=== PATIENT | male | born 1965 | race Two or more races ===

== ENCOUNTER 2019-11-10 09:55 | Emergency (ER) | payer MEDICAID ==
[~2019-11-10] VITALS: Ht 182.9 cm; Wt 73.0 kg
[2019-11-10 11:04] LABS: HEMATOCRIT. 34.7 % (42.0-52.0); HEMOGLOBIN. 12.1 g/dL (14.0-18.0); MEAN CORPUSCULAR HEMOGLOBIN 33.8 pg (28.0-32.0); MEAN CORPUSCULAR VOLUME 96.5 fL (80.0-94.0); MEAN PLATELET VOLUME 7.2 fl (7.4-10.4); PLATELET 257 x1000/uL (130-400); RED CELL DISTRIBUTION WIDTH 13.2 % (11.6-14.6)
[2019-11-10 11:06] LABS: CLARITY URINE CLEAR (CLEAR); COLOR URINE YELLOW (YELLOW); KETONES URINE NEGATIVE (NEGATIVE); LEUKOCYTE ESTERASE URINE 1+ (NEGATIVE); NITRITE URINE POSITIVE (NEGATIVE); OCCULT BLOOD URINE NEGATIVE (NEGATIVE); PH URINE >=9.0 (4.5-8.0); PROTEIN URINE NEGATIVE (NEGATIVE); SPECIFIC GRAVITY URINE 1.004 (1.005-1.030)
[2019-11-10 11:12] LABS: CHLORIDE 99 mEq/L (98-107)
[2019-11-10 11:30] LABS: PLATELET ESTIMATE NORMAL
[2019-11-10] MEDS ORDERED: NITROFURANTOIN 100MG M/M CAPSULE PO ONE (12:15)
[2019-11-10 12:20] VITALS: BP 130/86
== END 2019-11-10 12:36 | disposition home or self-care (01) ==
LOC: ER 09:55
DX: N30.00 Acute cystitis without hematuria (principal); I10 Essential (primary) hypertension; F17.200 Nicotine dependence, unspecified, uncomplicated
CPT/HCPCS: 36415; 71045; 80053; 81003; 85025; 99284

== ENCOUNTER 2019-12-18 12:47 | Inpatient (IN) | payer MEDICAID, OTHER ==
[~2019-12-18] VITALS: Ht 198.1 cm; Wt 86.2 kg
[2019-12-18] MEDS ORDERED: ACETAMINOPHEN 325MG TABLET PO STA (13:17)
[2019-12-18] MEDS ORDERED: PIPERACILLIN/TAZ 3.375G PREMIX 50 ML IV ONE (13:30)
[2019-12-18] MEDS ORDERED: SODIUM CHLORIDE 0.9% 1000ML BAG (SEPSIS BOLUS) IV ONE (13:30)
[2019-12-18] MEDS ORDERED: VANCOMYCIN 1 G PREMIX 200 ML IV ONE (13:30)
[2019-12-18 14:15] LABS: BASOPHILS % 0.4 % (0.0-2.0); HEMOGLOBIN. 14.2 g/dL (14.0-18.0); LYMPHOCYTES % 11.3 % (20.0-50.0); MEAN CORPUSCULAR HEMOGLOBIN 32.2 pg (28.0-32.0); MEAN CORPUSCULAR VOLUME 95.4 fL (80.0-94.0); MEAN PLATELET VOLUME 7.2 fl (7.4-10.4); MONOCYTES % 7.1 % (2.0-8.0); NEUTROPHILS % 81.2 % (40.0-76.0); PLATELET 307 x1000/uL (130-400); RED CELL DISTRIBUTION WIDTH 14.2 % (11.6-14.6)
[2019-12-18 14:18] LABS: CHLORIDE 100 mEq/L (98-107)
[2019-12-18 14:21] LABS: INR 1.1; PROTHROMBIN TIME 11.7 sec (9.6-11.0)
[2019-12-18 14:49] LABS: CLARITY URINE CLOUDY (CLEAR); COLOR URINE YELLOW (YELLOW); KETONES URINE NEGATIVE (NEGATIVE); LEUKOCYTE ESTERASE URINE 1+ (NEGATIVE); NITRITE URINE POSITIVE (NEGATIVE); OCCULT BLOOD URINE NEGATIVE (NEGATIVE); PROTEIN URINE 1+ (NEGATIVE); SPECIFIC GRAVITY URINE 1.013 (1.005-1.030)
[2019-12-18] MEDS ORDERED: BENZONATATE 100MG CAPSULE PO PRN (17:15)
[2019-12-18] MEDS ORDERED: ALBUTEROL 6.7GM HFA INHALER ORI PRN (17:15)
[2019-12-18] MEDS ORDERED: FOLIC ACID 1 MG, THIAMINE HCL 100 MG, MVI, ADULT NO.1 10 ML in DEXTROSE 5% WATER 1,000 ML IV ONE ×4 (18:00)
[2019-12-18] MEDS ORDERED: CEFTRIAXONE 1 G PREMIX 50 ML IV SCH (18:00)
[2019-12-18] MEDS: ENOXAPARIN 40MG/0.4ML SYR SUBCUT SCH (18:27)
[2019-12-18] MEDS: AZITHROMYCIN 500 MG TABLET PO SCH (18:27)
[2019-12-18] MEDS: AMLODIPINE 5MG TABLET PO SCH (18:58)
[2019-12-18 22:00] VITALS: BP 154/75
[2019-12-19] VITALS: BP 158/82
[2019-12-19 04:00] VITALS: BP 127/75
[2019-12-19 08:00] VITALS: BP 133/76
[2019-12-19] MEDS: AMLODIPINE 5MG TABLET PO SCH ×2 (08:34→20:43)
[2019-12-19] MEDS: AZITHROMYCIN 500 MG TABLET PO SCH (08:34)
[2019-12-19] MEDS: ACETAMINOPHEN 325MG TABLET PO PRN ×2 (08:35→18:36)
[2019-12-19 10:03] LABS: *AMPHETAMINES SCREEN URINE NEGATIVE (NEGATIVE); *BARBITURATES SCREEN URINE NEGATIVE (NEGATIVE); *BENZODIAZEPINES SCREEN URINE NEGATIVE (NEGATIVE); *COCAINE SCREEN URINE NEGATIVE (NEGATIVE)
[2019-12-19 10:04] LABS: CANNABINOID URINE SCREEN NEGATIVE (NEGATIVE); METHADONE URINE SCREEN NEGATIVE (NEGATIVE); OPIATES URINE SCREEN NEGATIVE (NEGATIVE); PHENCYCLIDINE URINE SCREEN NEGATIVE (NEGATIVE)
[2019-12-19 11:15] LABS: BASOPHILS % 0.3 % (0.0-2.0); EOSINOPHILS % 0.2 % (0.0-5.0); HEMATOCRIT. 36.3 % (42.0-52.0); HEMOGLOBIN. 12.5 g/dL (14.0-18.0); LYMPHOCYTES % 12.7 % (20.0-50.0); MEAN CORPUSCULAR HEMOGLOBIN 32.6 pg (28.0-32.0); MEAN CORPUSCULAR VOLUME 94.8 fL (80.0-94.0); MEAN PLATELET VOLUME 7.2 fl (7.4-10.4); MONOCYTES % 8.5 % (2.0-8.0); NEUTROPHILS % 78.3 % (40.0-76.0); PLATELET 231 x1000/uL (130-400); RED BLOOD CELL COUNT 3.83 mill/uL (4.7-6.1); RED CELL DISTRIBUTION WIDTH 14.1 % (11.6-14.6)
[2019-12-19 11:18] LABS: CHLORIDE 101 mEq/L (98-107)
[2019-12-19 12:00] VITALS: BP 117/76
[2019-12-19 16:00] VITALS: BP 129/75
[2019-12-19] MEDS: ENOXAPARIN 40MG/0.4ML SYR SUBCUT SCH (17:40)
[2019-12-19 20:00] VITALS: BP 91/42
[2019-12-19] MEDS ORDERED: CEFTRIAXONE 1 G PREMIX 50 ML IV SCH (20:00)
[2019-12-20] VITALS (7 sets, daily range): BP systolic 117–139; BP diastolic 78–91
[2019-12-20] MEDS: AZITHROMYCIN 500 MG TABLET PO SCH (09:12)
[2019-12-20] MEDS: THIAMINE HCL 100MG TABLET PO SCH (09:12)
[2019-12-20] MEDS: FOLIC ACID 1MG TABLET PO SCH (09:13)
[2019-12-20] MEDS: MULTIVITAMINS,THER W-MINERALS TABLET PO SCH (09:13)
[2019-12-20] MEDS: AMLODIPINE 5MG TABLET PO SCH ×2 (09:13→20:50)
[2019-12-20] MEDS: MEROPENEM 1,000 MG in SODIUM CHLORIDE 0.9% 100 ML IV SCH ×2 (14:39→20:51)
[2019-12-20] MEDS: ENOXAPARIN 40MG/0.4ML SYR SUBCUT SCH (17:01)
[2019-12-20] MEDS ORDERED: ALBUTEROL (0.083%) 2.5MG/3ML NEB HHN PRN (17:15)
[2019-12-21] VITALS: BP 126/77
[2019-12-21 04:00] VITALS: BP 106/70
[2019-12-21] MEDS: MEROPENEM 1,000 MG in SODIUM CHLORIDE 0.9% 100 ML IV SCH ×3 (05:26→21:12)
[2019-12-21 08:00] VITALS: BP 117/87
[2019-12-21] MEDS: AZITHROMYCIN 500 MG TABLET PO SCH (09:20)
[2019-12-21] MEDS: FOLIC ACID 1MG TABLET PO SCH (09:20)
[2019-12-21] MEDS: THIAMINE HCL 100MG TABLET PO SCH (09:20)
[2019-12-21] MEDS: MULTIVITAMINS,THER W-MINERALS TABLET PO SCH (09:20)
[2019-12-21] MEDS: AMLODIPINE 5MG TABLET PO SCH ×2 (09:21→21:12)
[2019-12-21 12:00] VITALS: BP 109/67
[2019-12-21 16:00] VITALS: BP 117/86
[2019-12-21] MEDS: ENOXAPARIN 40MG/0.4ML SYR SUBCUT SCH (18:03)
[2019-12-21 20:00] VITALS: BP 123/79
[2019-12-22] VITALS (7 sets, daily range): BP systolic 115–164; BP diastolic 72–82
[2019-12-22] MEDS: MEROPENEM 1,000 MG in SODIUM CHLORIDE 0.9% 100 ML IV SCH ×3 (06:26→21:28)
[2019-12-22] MEDS: AZITHROMYCIN 500 MG TABLET PO SCH (09:18)
[2019-12-22] MEDS: MULTIVITAMINS,THER W-MINERALS TABLET PO SCH (09:18)
[2019-12-22] MEDS: FOLIC ACID 1MG TABLET PO SCH (09:18)
[2019-12-22] MEDS: AMLODIPINE 5MG TABLET PO SCH ×2 (09:18→21:28)
[2019-12-22] MEDS: THIAMINE HCL 100MG TABLET PO SCH (09:19)
[2019-12-22 16:36] LABS: HEMATOCRIT. 37.5 % (42.0-52.0); HEMOGLOBIN. 12.7 g/dL (14.0-18.0); MEAN CORPUSCULAR HEMOGLOBIN 32.3 pg (28.0-32.0); MEAN CORPUSCULAR VOLUME 95.7 fL (80.0-94.0); MEAN PLATELET VOLUME 7.3 fl (7.4-10.4); PLATELET 226 x1000/uL (130-400); RED BLOOD CELL COUNT 3.92 mill/uL (4.7-6.1); RED CELL DISTRIBUTION WIDTH 13.8 % (11.6-14.6)
[2019-12-22 16:45] LABS: CHLORIDE 102 mEq/L (98-107)
[2019-12-22] MEDS: ENOXAPARIN 40MG/0.4ML SYR SUBCUT SCH (17:14)
[2019-12-22 17:28] LABS: NUCLEATED RED BLOOD CELLS 1 /100 WBC; PLATELET ESTIMATE NORMAL
[2019-12-23] VITALS: BP 112/77
[2019-12-23 04:00] VITALS: BP 124/97
[2019-12-23] MEDS: MEROPENEM 1,000 MG in SODIUM CHLORIDE 0.9% 100 ML IV SCH ×2 (05:39→14:36)
[2019-12-23 08:00] VITALS: BP 109/75
[2019-12-23] MEDS: AMLODIPINE 5MG TABLET PO SCH ×2 (09:00→22:11)
[2019-12-23] MEDS: AZITHROMYCIN 500 MG TABLET PO SCH (10:01)
[2019-12-23] MEDS: FOLIC ACID 1MG TABLET PO SCH (10:01)
[2019-12-23] MEDS: MULTIVITAMINS,THER W-MINERALS TABLET PO SCH (10:01)
[2019-12-23] MEDS: THIAMINE HCL 100MG TABLET PO SCH (10:02)
[2019-12-23 12:00] VITALS: BP 110/74
[2019-12-23 16:00] VITALS: BP 107/77
[2019-12-23] MEDS: ENOXAPARIN 40MG/0.4ML SYR SUBCUT SCH (17:12)
[2019-12-23 20:00] VITALS: BP 112/77
[2019-12-24] VITALS: BP 107/75
[2019-12-24 00:58] VITALS: BP 107/75
[2019-12-24 04:00] VITALS: BP 125/97
[2019-12-24] MEDS: FOLIC ACID 1MG TABLET PO SCH (08:24)
[2019-12-24] MEDS: THIAMINE HCL 100MG TABLET PO SCH (08:24)
[2019-12-24] MEDS: AMLODIPINE 5MG TABLET PO SCH ×2 (08:24→21:00)
[2019-12-24] MEDS: MULTIVITAMINS,THER W-MINERALS TABLET PO SCH (08:24)
[2019-12-24 11:33] VITALS: BP 116/84
[2019-12-24] MEDS: MEROPENEM 1,000 MG in SODIUM CHLORIDE 0.9% 100 ML IV SCH ×2 (14:06→21:12)
[2019-12-24 16:00] VITALS: BP 114/83
[2019-12-24] MEDS: ENOXAPARIN 40MG/0.4ML SYR SUBCUT SCH (17:21)
[2019-12-24 20:20] VITALS: BP 107/77
[2019-12-25] VITALS: BP 118/83
[2019-12-25 04:00] VITALS: BP 114/77
[2019-12-25] MEDS: MEROPENEM 1,000 MG in SODIUM CHLORIDE 0.9% 100 ML IV SCH ×2 (05:48→14:34)
[2019-12-25 08:00] VITALS: BP 119/88
[2019-12-25] MEDS: MULTIVITAMINS,THER W-MINERALS TABLET PO SCH (09:04)
[2019-12-25] MEDS: FOLIC ACID 1MG TABLET PO SCH (09:04)
[2019-12-25] MEDS: AMLODIPINE 5MG TABLET PO SCH ×2 (09:05→21:00)
[2019-12-25] MEDS: THIAMINE HCL 100MG TABLET PO SCH (09:05)
[2019-12-25 12:00] VITALS: BP 133/85
[2019-12-25 16:00] VITALS: BP 113/65
[2019-12-25] MEDS: ENOXAPARIN 40MG/0.4ML SYR SUBCUT SCH (18:28)
[2019-12-25 20:00] VITALS: BP 99/72
[2019-12-26 00:26] VITALS: BP 114/76
[2019-12-26 04:00] VITALS: BP 124/84
[2019-12-26 08:00] VITALS: BP 118/76
[2019-12-26] MEDS: MULTIVITAMINS,THER W-MINERALS TABLET PO SCH (09:10)
[2019-12-26] MEDS: THIAMINE HCL 100MG TABLET PO SCH (09:10)
[2019-12-26] MEDS: FOLIC ACID 1MG TABLET PO SCH (09:10)
[2019-12-26] MEDS: AMLODIPINE 5MG TABLET PO SCH (09:12)
[2019-12-26 10:36] VITALS: BP 118/76
[2019-12-26 12:00] VITALS: BP 139/86
[2019-12-26] MEDS ORDERED: MEROPENEM 1,000 MG in SODIUM CHLORIDE 0.9% 100 ML IV SCH (12:00)
== END 2019-12-26 13:38 | disposition home or self-care (01) | DRG 720 ==
LOC: ER 12:47 → EDBEDREQSVC 16:41 → EDBEDREQ 16:41 → ENRESERV 20:18 → ER 22:37 → 7WST 12-19 01:03 → 5WST 12-20 01:56 → 6EST 12-23 23:07
PROVIDERS: ADMIT Internal Medicine; ATTEND Internal Medicine
DX: A41.51 Sepsis due to Escherichia coli [E. coli] (principal); E87.2 Acidosis; I10 Essential (primary) hypertension; I16.0 Hypertensive urgency; Z16.12 Extended spectrum beta lactamase (ESBL) resistance; N39.0 Urinary tract infection, site not specified; J18.9 Pneumonia, unspecified organism; F10.129 Alcohol abuse with intoxication, unspecified; Z20.828 Contact with and (suspected) exposure to other viral communicable diseases; J98.11 Atelectasis; F10.10 Alcohol abuse, uncomplicated; G93.41 Metabolic encephalopathy; Z85.89 Personal history of malignant neoplasm of other organs and systems; Z79.899 Other long term (current) drug therapy
CPT/HCPCS: 36415; 71045; 80048; 80053; 80305; 80320; 81003; 82962; 83605; 84145; 84484; 85025; 85379; 87077; 87186; 93005; 96365; 99291; J0696; J1650; J2185; J2543; J3370; J3411; J3490; J7030; J7050; J7070; G0480; U0003-CS

== ENCOUNTER 2020-01-23 21:36 | Emergency (ER) | payer MEDICAID, OTHER ==
[~2020-01-23] VITALS: Ht 198.1 cm; Wt 87.0 kg
[2020-01-23 23:24] LABS: CHLORIDE 111 mEq/L (98-107)
[2020-01-23 23:56] LABS: ETHANOL BLOOD 318 mg/dL
[2020-01-24 07:30] VITALS: BP 130/86
== END 2020-01-24 08:04 | disposition home or self-care (01) ==
LOC: ER 21:36
DX: F10.129 Alcohol abuse with intoxication, unspecified (principal); R07.89 Other chest pain; Y90.8 Blood alcohol level of 240 mg/100 ml or more
CPT/HCPCS: 36415; 80048; 80320; 84484; 93005; 99285; G0480

== ENCOUNTER 2020-01-28 21:41 | Inpatient (IN) | payer MEDICAID, OTHER ==
[~2020-01-28] VITALS: Ht 198.1 cm; Wt 92.1 kg
[2020-01-28 23:46] LABS: CLARITY URINE CLEAR (CLEAR); COLOR URINE YELLOW (YELLOW); KETONES URINE NEGATIVE (NEGATIVE); LEUKOCYTE ESTERASE URINE NEGATIVE (NEGATIVE); NITRITE URINE NEGATIVE (NEGATIVE); OCCULT BLOOD URINE NEGATIVE (NEGATIVE); PH URINE 5.5 (4.5-8.0); PROTEIN URINE NEGATIVE (NEGATIVE); SPECIFIC GRAVITY URINE 1.009 (1.005-1.030); UROBILINOGEN URINE 0.2 E.U./dL (0.2-1.0)
[2020-01-28 23:53] LABS: CHLORIDE 107 mEq/L (98-107)
[2020-01-28 23:56] LABS: BASOPHILS % 1.1 % (0.0-2.0); EOSINOPHILS % 6.2 % (0.0-5.0); HEMOGLOBIN. 13.5 g/dL (14.0-18.0); LYMPHOCYTES % 50.4 % (20.0-50.0); MEAN CORPUSCULAR HEMOGLOBIN 32.9 pg (28.0-32.0); MEAN CORPUSCULAR VOLUME 95.1 fL (80.0-94.0); MEAN PLATELET VOLUME 7.2 fl (7.4-10.4); MONOCYTES % 10.2 % (2.0-8.0); NEUTROPHILS % 32.1 % (40.0-76.0); PLATELET 212 x1000/uL (130-400); RED CELL DISTRIBUTION WIDTH 15.1 % (11.6-14.6)
[2020-01-28 23:58] LABS: *AMPHETAMINES SCREEN URINE NEGATIVE (NEGATIVE); *BARBITURATES SCREEN URINE NEGATIVE (NEGATIVE); ETHANOL BLOOD 296 mg/dL
[2020-01-28 23:59] LABS: *BENZODIAZEPINES SCREEN URINE NEGATIVE (NEGATIVE); *COCAINE SCREEN URINE NEGATIVE (NEGATIVE); CANNABINOID URINE SCREEN NEGATIVE (NEGATIVE); METHADONE URINE SCREEN NEGATIVE (NEGATIVE); OPIATES URINE SCREEN NEGATIVE (NEGATIVE); PHENCYCLIDINE URINE SCREEN NEGATIVE (NEGATIVE)
[2020-01-29 04:35] VITALS: BP 157/108
[2020-01-29] MEDS ORDERED: ACETAMINOPHEN 325MG TABLET PO PRN (07:00)
[2020-01-29] MEDS ORDERED: DOCUSATE SODIUM 100MG CAPSULE PO PRN (07:00)
[2020-01-29] MEDS ORDERED: GUAIFENESIN 200MG/10ML SUGAR FREE UDC PO PRN (07:00)
[2020-01-29] MEDS ORDERED: HYDROCODONE/ACETAMINOPHEN 5/325MG TABLET PO PRN (07:00)
[2020-01-29 08:00] VITALS: BP 158/99
[2020-01-29] MEDS: ASPIRIN 81MG EC TABLET PO SCH (09:30)
[2020-01-29] MEDS: AMLODIPINE 10MG TABLET PO SCH (09:31)
[2020-01-29] MEDS ORDERED: PNEUMOCOCCAL 23-VAL P-SAC VAC 0.5 ML IM ONE (10:00)
[2020-01-29 12:00] VITALS: BP 150/90
[2020-01-29] MEDS ORDERED: LEVOFLOXACIN 500MG PREMIX 100 ML IV SCH (12:00)
[2020-01-29] MEDS: ONDANSETRON HCL 4MG/2ML INJ IV PRN (14:21)
[2020-01-29 18:30] VITALS: BP 178/109
[2020-01-29] MEDS ORDERED: HYDRALAZINE HCL 100MG TABLET PO NR (18:30)
[2020-01-29 20:00] VITALS: BP 156/98
[2020-01-29] MEDS: HYDRALAZINE HCL 100MG TABLET PO SCH (21:28)
[2020-01-30] VITALS: BP 139/139
[2020-01-30] MEDS: ONDANSETRON HCL 4MG/2ML INJ IV PRN (02:05)
[2020-01-30 04:00] VITALS: BP 134/90
[2020-01-30 06:31] LABS: BASOPHILS % 0.5 % (0.0-2.0); HEMATOCRIT. 42.5 % (42.0-52.0); HEMOGLOBIN. 14.7 g/dL (14.0-18.0); LYMPHOCYTES % 20.6 % (20.0-50.0); MEAN CORPUSCULAR HEMOGLOBIN 32.4 pg (28.0-32.0); MEAN PLATELET VOLUME 7.7 fl (7.4-10.4); MONOCYTES % 4.6 % (2.0-8.0); NEUTROPHILS % 72.3 % (40.0-76.0); PLATELET 198 x1000/uL (130-400); RED BLOOD CELL COUNT 4.52 mill/uL (4.7-6.1); RED CELL DISTRIBUTION WIDTH 15.3 % (11.6-14.6)
[2020-01-30 06:49] LABS: CHLORIDE 96 mEq/L (98-107)
[2020-01-30 06:58] LABS: LDL CHOLESTEROL 105 mg/dL (5-100)
[2020-01-30 06:59] LABS: HDL CHOLESTEROL 114 mg/dL (40-59)
[2020-01-30 07:49] VITALS: BP 146/89
[2020-01-30] MEDS: ASPIRIN 81MG EC TABLET PO SCH (09:11)
[2020-01-30] MEDS: AMLODIPINE 10MG TABLET PO SCH (09:12)
[2020-01-30] MEDS: HYDRALAZINE HCL 100MG TABLET PO SCH (09:12)
[2020-01-30] MEDS ORDERED: POTASSIUM CHLORIDE 20MEQ TABLET SR PO NR (10:00)
[2020-01-30 10:46] VITALS: BP 141/96
[2020-01-30 12:00] VITALS: BP 141/92
[2020-01-30] MEDS ORDERED: HYDRALAZINE HCL 100MG TABLET PO SCH (14:00)
[2020-01-30] MEDS ORDERED: ATORVASTATIN CALCIUM 20MG TABLET PO SCH (21:00)
== END 2020-01-30 12:25 | disposition home or self-care (01) | DRG 58 ==
LOC: ER 21:41 → 6WST 01-29 00:05 → EDBEDREQ 01-29 00:09 → ENRESERV 01-29 03:47
PROVIDERS: ADMIT Hospitalist; ATTEND Hospitalist
DX: R26.9 Unspecified abnormalities of gait and mobility (principal); G31.89 Other specified degenerative diseases of nervous system; E78.5 Hyperlipidemia, unspecified; I10 Essential (primary) hypertension; Y90.8 Blood alcohol level of 240 mg/100 ml or more; Z86.73 Personal history of transient ischemic attack (TIA), and cerebral infarction without residual deficits; F10.20 Alcohol dependence, uncomplicated; I51.7 Cardiomegaly
CPT/HCPCS: 36415; 71045; 80053; 80061; 80305; 80320; 81003; 83880; 84484; 85025; 90732; 93005; 93970; 97162; 99285; J1956; J2405; G0480

== ENCOUNTER 2020-09-02 07:53 | Emergency (ER) | payer MEDICAID, OTHER ==
[~2020-09-02] VITALS: Ht 193 cm; Wt 113.0 kg
[2020-09-02] MEDS ORDERED: METHYLPREDNISOLONE SOD SUCC 125 MG/2 ML VIAL IV STA (08:26)
[2020-09-02] MEDS ORDERED: ALBUTEROL (0.083%) 2.5MG/3ML NEB HHN STA (08:26)
[2020-09-02] MEDS ORDERED: IPRATROPIUM BROMIDE (0.02%) 0.5MG/2.5ML NEB HHN STA (08:26)
[2020-09-02 08:43] LABS: BASOPHILS % 1.3 % (0.0-2.0); EOSINOPHILS % 6.2 % (0.0-5.0); HEMATOCRIT. 42.2 % (42.0-52.0); HEMOGLOBIN. 14.1 g/dL (14.0-18.0); LYMPHOCYTES % 53.3 % (20.0-50.0); MEAN CORPUSCULAR HEMOGLOBIN 32.5 pg (28.0-32.0); MEAN CORPUSCULAR VOLUME 97.3 fL (80.0-94.0); MEAN PLATELET VOLUME 7.1 fl (7.4-10.4); MONOCYTES % 11.7 % (2.0-8.0); NEUTROPHILS % 27.5 % (40.0-76.0); PLATELET 224 x1000/uL (130-400); RED BLOOD CELL COUNT 4.34 mill/uL (4.7-6.1); RED CELL DISTRIBUTION WIDTH 13.3 % (11.6-14.6)
[2020-09-02 08:51] LABS: CHLORIDE 110 mEq/L (98-107)
[2020-09-02 13:06] LABS: CLARITY URINE CLEAR (CLEAR); COLOR URINE YELLOW (YELLOW); KETONES URINE NEGATIVE (NEGATIVE); LEUKOCYTE ESTERASE URINE NEGATIVE (NEGATIVE); NITRITE URINE NEGATIVE (NEGATIVE); OCCULT BLOOD URINE NEGATIVE (NEGATIVE); PH URINE 5.5 (4.5-8.0); PROTEIN URINE NEGATIVE (NEGATIVE); SPECIFIC GRAVITY URINE 1.007 (1.005-1.030); UROBILINOGEN URINE 0.2 E.U./dL (0.2-1.0)
[2020-09-02 16:38] VITALS: BP 130/78
== END 2020-09-02 16:41 | disposition home or self-care (01) ==
LOC: ER 07:53
DX: T51.0X1A Toxic effect of ethanol, accidental (unintentional), initial encounter (principal); Y92.89 Other specified places as the place of occurrence of the external cause; R07.89 Other chest pain; J44.1 Chronic obstructive pulmonary disease with (acute) exacerbation; I10 Essential (primary) hypertension; Z86.73 Personal history of transient ischemic attack (TIA), and cerebral infarction without residual deficits; Z20.822 Contact with and (suspected) exposure to COVID-19
CPT/HCPCS: 36415; 71045; 80053; 80320; 81003; 83880; 84484; 85025; 87086; 93005; 94640; 96374; 99285; C9803; J2930; U0003; Z7610; G0480